=== PATIENT | female | born 1980 | race African-American/Black ===

== ENCOUNTER 2021-06-24 08:37 | Inpatient (IN) | payer MEDICAID ==
--- NOTE | 2021-06-24 09:52 | Anesthesia Consultation ---
Anesthesia Consult and Med Hx Date of service: 06/24/21 - Airway Anesthetic Teeth Evaluation: Good ROM Head & Neck: Adequate Mental/Hyoid Distance: Adequate Mallampati Class: Class II Intubation Access Assessment: Probably Good - Pulmonary Exam CTA: Yes - Cardiac Exam Cardiac Exam: RRR - Pre-Operative Health Status ASA Pre-Surgery Classification: ASA2 Proposed Anesthetic Plan: Epidural
[2021-06-24] MEDS ORDERED: OXYTOCIN 10 UNIT/1 ML INJ IM PRN (10:01)
[2021-06-24] MEDS ORDERED: METHYLERGONOVINE MALEATE 0.2 MG/ML VIAL IM PRN (10:01)
[2021-06-24] MEDS ORDERED: CARBOPROST TROMETHAMINE 250 MCG/1 ML INJ IM PRN (10:01)
[2021-06-24] MEDS ORDERED: LOPERAMIDE 2 MG CAP PO PRN (10:01)
[2021-06-24] MEDS ORDERED: BUTORPHANOL 2 MG/1 ML INJ IV PRN ×2 (10:01→11:00)
[2021-06-24] MEDS ORDERED: LIDOCAINE (2%) 20 MG/1 ML VIAL 20 ML MDV INFILTRATI NR (10:01)
[2021-06-24] MEDS ORDERED: miSOPROStol 200 MCG TAB PR PRN (10:01)
[2021-06-24] MEDS ORDERED: AMPICILLIN/NS 2 GM/100 ML 2 GM/100 ML BAG IV ONE (10:01)
[2021-06-24] MEDS ORDERED: TERBUTALINE 1 MG/1 ML INJ SUB-Q PRN (10:01)
--- NOTE | 2021-06-24 10:15 | History and Physical Report ---
History of Present Illness Date of examination: 06/24/21 Date of admission: 06/24/21 08:37 Chief complaint: "I was sent here for an induction" History of present illness: 40 y/o presented to [facility] @ 39 wks for an IOL r/t AMA and GDM. She denied LOF or VB and admitted to active FM. Pt initiated her pnc @ [facility] @ 17 wks gestation. She was co-managed by [facility] r/t AMA and GDM. Pt was taking Metformin for GDM management. Other than GDM pt denies any other med problems or surgeries. Neg social hx. Family hx of htn and DM. Pt is GBS pos. She was admitted to L&D for delivery. Past History Past Medical History: other (GDM) Past Surgical History: no surgical history Family/Genetic History: diabetes, hypertension Social history: single, full code - Obstetrical History Expected Date of Delivery: 07/01/21 Actual Gestation: 39 Week(s) 0 Day(s) : 3 Para: 2 Hx # Term Pregnancies: 2 Number of Pregnancies: 0 Spontaneous Abortions: 0 Number of Living Children: 2 Medications and Allergies Allergies Allergy/AdvReac Type Severity Reaction Status Date / Time No Known Allergies Allergy Unverified 06/24/21 10:21 Active Meds: Active Medications Acetaminophen (Acetaminophen 325 Mg Tab) 650 mg PO Q4H PRN PRN Reason: Pain, Mild (1-3) Butorphanol Tartrate (Butorphanol 2 Mg/1 Ml Inj) 1 mg IV Q2H PRN PRN Reason: Pain, Moderate(4-6) LABOR PAIN Butorphanol Tartrate (Butorphanol 2 Mg/1 Ml Inj) 2 mg IV Q2H PRN PRN Reason: Pain , Severe (7-10) Carboprost Tromethamine (Carboprost Tromethamine 250 Mcg/1 Ml Inj) 250 mcg IM ONCE PRN PRN Reason: Uterine Bleeding Ephedrine Sulfate (Ephedrine Sulfate 50 Mg/1 Ml Inj) 10 mg IV Q2M PRN PRN Reason: Hypotension Fentanyl (Fentanyl 100 Mcg/2 Ml Inj) 100 mcg IV Q2H PRN PRN Reason: Pain,Severe (7-10) LABOR PAIN Oxytocin/Sodium Chloride (Pitocin/Ns 30 Unit/500ml) 30 units in 500 mls @ 2 ml s/hr IV TITR JOSE; Protocol Lactated Ringer's (Lactated Ringers) 1,000 mls @ 125 mls/hr IV DIRECT JOSE Oxytocin/Sodium Chloride (Pitocin/Ns 30 Unit/500ml) 30 units in 500 mls @ 40 mls/hr IV TITR JOSE; Protocol Ampicillin Sodium (Ampicillin/Ns 1 Gm/50 Ml) 1 gm in 50 mls @ 100 mls/hr IV Q4H JOSE; Protocol Ampicillin Sodium (Ampicillin/Ns 2 Gm/100 Ml) 2 gm in 100 mls @ 100 mls/hr IV ONCE ONE; Protocol Stop: 06/24/21 11:00 Lidocaine (Lidocaine (2%) 20 Mg/1 Ml Vial 20 Ml Mdv) 20 ml INFILTRATI ONCE ONE Stop: 06/24/21 10:02 Loperamide HCl (Loperamide 2 Mg Cap) 2 mg PO ONCE PRN PRN Reason: give with Hemabate Methylergonovine Maleate (Methylergonovine Maleate 0.2 Mg/Ml Vial) 0.2 mg IM ONCE PRN PRN Reason: Uterine Bleeding Mineral Oil (Mineral Oil 30 Ml Oral Liqd) 30 ml PO QHS PRN PRN Reason: Constipation Misoprostol (Misoprostol 200 Mcg Tab) [address] ONCE PRN PRN Reason: Uterine Bleeding Oxytocin (Oxytocin 10 Unit/1 Ml Inj) 10 unit IM ONCE PRN PRN Reason: Uterine Bleeding Terbutaline Sulfate (Terbutaline 1 Mg/1 Ml Inj) 0.25 mg SUB-Q ONCE PRN PRN Reason: Hyperstimulation/Hypertonicity Review of Systems All systems: negative Eyes: deferred Ears, nose, mouth and throat: deferred Breasts: normal Genitourinary: normal appearance Rectal Exam: normal exam-external/orifice - Vital Signs Vital signs: Vital Signs Pulse Pulse Ox 95 H 96 06/24/21 09:36 06/24/21 09:36 Temp Pulse Resp BP Pulse Ox 99.4 F 100 H 96 06/24/21 09:59 06/24/21 10:01 06/24/21 10:01 - Physical Exam Breasts: Positive: normal Abdomen: Positive: normal appearance, soft, normal bowel sounds Genitourinary (Female): Positive: normal external genitalia, normal perenium Vulva: both: normal Vagina: Positive: normal moisture Uterus: Positive: enlarged, normal contour, other (gravid) Adnexa: both: normal Anus/Rectum: Positive: normal perianal skin Extremities: Positive: normal - Obstetrical FHR: auscultation normal, category 1 Uterine Contraction Monitor Mode: External Cervical Dilatation: 4 Cervical Effacement Percentage: 80 station: -2 Uterine Contraction Pattern: Irregular Uterine Tone Measurement Phase: Resting Uterine Contraction Intensity: Mild Results All other labs normal. Assessment and Plan A: IUP@ 39 wks with GDM +GBS AMA P: Admit to L&D for an augmentation of labor Continuous monitoring GBS protocol FSBS Q4 then Q2h when in active labor Anticipate Dr Delgado agrees with plan
[2021-06-24] MEDS ORDERED: fentaNYL-BUPIV 2 MCG/ML-0.125% 200 MCG/100 ML BAG EPIDURAL SCH (11:00)
[2021-06-24] MEDS ORDERED: ACETAMINOPHEN 325 MG TAB PO PRN (11:00)
[2021-06-24] MEDS ORDERED: OXYTOCIN DRIP 30 UNITS/500 ML BAG IV SCH ×2 (11:00)
[2021-06-24] MEDS ORDERED: ePHEDrine SULFATE 50 MG/1 ML INJ IV PRN ×2 (11:00)
[2021-06-24] MEDS ORDERED: NALOXONE 2 MG/2 ML INJ IV PRN (11:00)
[2021-06-24] MEDS ORDERED: fentaNYL 100 MCG/2 ML INJ IV PRN (11:00)
[2021-06-24 11:01] LABS: Hematocrit 37.5 % (30.3-42.9); Hemoglobin 12.7 gm/dl (10.1-14.3); Mean Corpuscular HGB Conc 34 % (30-34); Mean Corpuscular Volume 78 fl (79-97); Platelet Count 181 K/mm3 (140-440); Red Blood Count 4.81 M/mm3 (3.65-5.03); Red Cell Distribution Width 16.1 % (13.2-15.2)
[2021-06-24] MEDS: LACTATED RINGERS 1,000 ML IV SCH ×3 (11:08→17:51)
[2021-06-24] MEDS: AMPICILLIN/NS 1 GM/50 ML 1 GM/50 ML BAG IV SCH ×2 (15:26→20:54)
--- NOTE | 2021-06-24 18:45 | Progress Note ---
Labor Epidural - Labor Epidural Start Time: 18:35 Stop Time: 18:43 Performed by:: FRANCISCO FLOWERS Procedure: Patient is requesting epidural for labor pain. H&P, and labs reviewed. Procedure explained, questions answered, consent obtained. Patient in sitting position with blood pressure cuff and pulse ox on and working. Timeout performed immediately before start of procedure. Sterile chlorahexadine 0.5% prep/drape. 3 mL 1% lidocaine skin wheal at L[3]-L[4]. 17-gauge tuohy epidural needle advanced to [id number] with saline at [7] cm. Epidural catheter advanced to [12] cm, negative aspiration for blood and csf, negative test dose 3 ml 1.5% lidocaine with epinephrine. Epidural dexmedetomidine [30] mcg administered. Sterile sponge and tegaderm applied, followed by tape reinforcement. Patient tolerated procedure well. Darin SRNA
[2021-06-24] MEDS ORDERED: MINERAL OIL 30 ML ORAL LIQD PO PRN (22:00)
[2021-06-25] MEDS ORDERED: PROMETHAZINE 25 MG RECT SUPP PR PRN (05:07)
[2021-06-25] MEDS ORDERED: ONDANSETRON 4 MG/2 ML INJ IV PRN (05:07)
[2021-06-25] MEDS ORDERED: WITCH HAZEL/ GLYCERIN PAD TP PRN (05:07)
[2021-06-25] MEDS ORDERED: LANOLIN/ZINC/DIMETHICONE (LANSINOH) 7 GM TP PRN (05:07)
[2021-06-25] MEDS ORDERED: diphenhydrAMINE 25 MG CAP PO PRN (05:07)
[2021-06-25] MEDS ORDERED: MAGNESIUM HYDROXIDE (MOM) ORAL LIQD UDC PO PRN (05:07)
[2021-06-25] MEDS ORDERED: PROMETHAZINE 25 MG TAB PO PRN (05:07)
[2021-06-25] MEDS: IBUPROFEN 600 MG TAB PO SCH ×2 (05:41→16:09)
--- NOTE | 2021-06-25 07:27 | Procedure Note ---
OB Delivery Note - Delivery Date of Delivery: 06/25/21 Surgeon: JANETT SHEFFIELD JR Estimated blood loss: 500cc - Vaginal Delivery presentation: vertex Delivery position: OA Intrapartum events: none Delivery induction: none Delivery augmentation: rupture of membranes Delivery monitor: external FHT, external uterine Route of delivery: vacuum extraction Indicators for instrumentation: maternal exhaustion Delivery placenta: spontaneous Delivery cord: nuchal cord Episiotomy: none Delivery laceration: 2nd degree Delivery repair: vicryl Anesthesia: epidural Delivery comments: S/p vaccuum assisted vaginal delivery of male infant at 0113. EFW 3520g. 8/9. EBL 500 cc. 2nd degree perineal laceration repaired with 2-0 vicryl. Fundus firm below the umbilicus - Infant A at 1 minute: 8 at 5 minutes: 9 Infant Gender: Female
--- NOTE | 2021-06-25 12:07 | Post Anesthesia Evaluation ---
- Post Anesthesia Evaluation Patient Participated: Yes Airway Patent: Yes Stable Respiratory Function: Yes Nausea/Vomiting: No Temp > 96.8F: Yes Pain Manageable: Yes Adequeate Hydration: Yes Anesthesia Complications: No Block Receding Appropriately: Yes
[2021-06-25 16:17] LABS: Hemoglobin 10.4 gm/dl (10.1-14.3)
[2021-06-26] MEDS: IBUPROFEN 600 MG TAB PO SCH ×3 (00:23→12:09)
--- NOTE | 2021-06-26 11:21 | Progress Note ---
Assessment and Plan A: PP Day #1 GDM P: Follow Routine Orders Continue GDM Diet at home Depo Provera 150mg IM x1 dose prior to discharge D/C Home today per patient request RTO in 3 Weeks Subjective - Subjective Date of service: 06/26/21 Patient reports: appetite normal, voiding normally, pain well controlled, flatus, ambulating normally : doing well, bottle feeding (and ) Objective - Vital Signs Latest vital signs: Vital Signs Temp Pulse Resp BP Pulse Ox Pulse Ox 06/26/21 08:30 98 06/26/21 07:34 97.6 F 76 20 113/62 98 06/26/21 05:39 98 06/26/21 03:20 98 06/26/21 01:20 98 06/26/21 00:20 98 06/26/21 00:10 97.0 F L 89 18 109/62 98 06/25/21 21:35 98 06/25/21 20:33 97.8 F 72 18 115/63 98 06/25/21 20:25 98 06/25/21 16:09 16 06/25/21 16:00 98.6 F 84 18 116/52 97 Intake and Output 06/25/21 06/26/21 06/26/21 22:59 06:59 14:59 Intake Total 360 300 Output Total 1000 Balance -640 300 Intake: Oral 360 Intake, Free Water 300 Output: Urine 1000 Void 1000 Other: Total, Intake Amount 240 Total, Output Amount 600 # Voids Void 1 1 - Exam Breasts: Present: normal Cardiovascular: Present: Regular rate Lungs: Present: Clear to auscultation, Normal air movement Abdomen: Present: normal appearance, soft, normal bowel sounds Uterus: Present: normal, firm, fundal height below umbilicus Extremities: Present: normal
--- NOTE | 2021-06-26 11:23 | Discharge Summary ---
Providers - Providers Date of Admission: 06/24/21 08:37 Date of discharge: 06/26/21 Attending physician: JANETT SHEFFIELD JR, MD Primary care physician: JANETT SHEFFIELD JR, MD Hospitalization Reason for admission: induction of labor Delivery: vacuum extraction Episiotomy: none Laceration: 2nd degree Other procedures: none complications: none Discharge diagnosis: IUP at term delivered baby: female Condition at discharge: Good Disposition: 01 HOME / SELF CARE / HOMELESS Plan - Provider Discharge Summary Activity: routine, no sex for 6 weeks, no heavy lifting 4 weeks, no strenuous exercise Diet: routine Instructions: routine Additional instructions: [] Smoking cessation referral if applicable(refer to patient education folder for contact #) [] Refer to [facility] Booklet Call your doctor immediately for: * Fever > 100.5 * Heavy vaginal bleeding ( >1 pad per hour) * Severe persistent headache * Shortness of breath * Reddened, hot, painful area to leg or breast * Drainage or odor from incision. * Keep incision clean and dry at all times and follow doctor's instructions regarding bathing/showering - Follow up plan Follow up: JANETT SHEFFIELD JR, MD [Primary Care Provider] - 07/17/21 Forms: [facility] Discharge Summary
[2021-06-26] MEDS ORDERED: medroxyPROGESTERone ACETATE 150 MG/ML SYRINGE IM NR (12:00)
[2021-06-26 13:03] VITALS: BP 137/80
== END 2021-06-26 13:20 | disposition home or self-care (01) | DRG 775 ==
LOC: LD 08:37 → OB 06-25 04:09
PROVIDERS: ADMIT Obstetrics & Gynecology; ATTEND Obstetrics & Gynecology
PROC: 0KQM0ZZ Repair Perineum Muscle, Open Approach (ICD-10-PCS; principal; 2021-06-25)
PROC: 10D07Z6 Extraction of Products of Conception, Vacuum, Via Natural or Artificial Opening (ICD-10-PCS; 2021-06-25)
PROC: 3E0R3BZ Introduction of Anesthetic Agent into Spinal Canal, Percutaneous Approach (ICD-10-PCS; 2021-06-25)
PROC: 00HU33Z Insertion of Infusion Device into Spinal Canal, Percutaneous Approach (ICD-10-PCS; 2021-06-25)
DX: O99.824 Streptococcus B carrier state complicating childbirth (principal); Z3A.39 39 weeks gestation of pregnancy; Z37.0 Single live birth; Z83.3 Family history of diabetes mellitus; Z82.49 Family history of ischemic heart disease and other diseases of the circulatory system; O69.81X0 Labor and delivery complicated by cord around neck, without compression, not applicable or unspecified; O70.1 Second degree perineal laceration during delivery; O24.429 Gestational diabetes mellitus in childbirth, unspecified control; O66.5 Attempted application of vacuum extractor and forceps; Z20.822 Contact with and (suspected) exposure to COVID-19
CPT/HCPCS: 36415; 82962; 85014; 85018; 85027; 86850; 86900; 86901; G0378; J0290; J1050; J2590; J7120; U0003